=== PATIENT | male | born 1955 | race Caucasian/White ===

== ENCOUNTER 2022-09-18 14:06 | Inpatient (IN) | payer OTHER ==
[~2022-09-18] VITALS: Ht 170.2 cm; Wt 113.4 kg
--- NOTE | 2022-09-18 14:17 | NUR ---
Patient is alert, awake, oriented to name, but unable to recall the exact names & dosages of his home medicines at this time.
[2022-09-18] MEDS ORDERED: IV LACTATED RINGERS SOLUTION 1,000 ML BAG IV ONE (14:30)
--- NOTE | 2022-09-18 15:12 | NUR ---
"Plan to admit" per Dr Mcgraw. ER reistration/admitting staff Marisol Leblanc notified.
[2022-09-18 15:44] LABS: HEMATOCRIT 44.8 % (36.7-47.1); MEAN CORPUSCULAR HEMOGLOBIN 28.3 uug (23.8-33.4); MEAN CORPUSCULAR VOLUME 90.6 fL (73.0-96.2); PLATELET COUNT (AUTO) 284 K/uL (152-348)
[2022-09-18 16:29] LABS: ALANINE AMINOTRANSFERASE 20 U/L (16-63); ALKALINE PHOSPHATASE 79 U/L (50-136); ASPARTATE AMINOTRANSFERASE 9 U/L (15-37); BILIRUBIN,DIRECT 0.3 mg/dL (0.0-0.2); BILIRUBIN,TOTAL 0.6 mg/dL (0.2-1.0); CARBON DIOXIDE 12 mmol/L (21-32); CHLORIDE 84 mmol/L (98-107); CREATININE 2.4 mg/dL (0.6-1.3); POTASSIUM 5.4 mmol/L (3.5-5.1); TOTAL PROTEIN, SERUM 7.2 g/dL (6.4-8.2)
[2022-09-18] MEDS ORDERED: CEFEPIME HCL 1 G in IV DEXTROSE 5% 50 ML IV ONE (16:30)
[2022-09-18] MEDS ORDERED: VANCOMYCIN IV 1,000 MG in IV DEXTROSE 5% 250 ML IV ONE (16:30)
[2022-09-18 16:32] LABS: GLUCOSE 742 mg/dL (74-106); UREA NITROGEN, BLOOD 89 mg/dL (7-18)
--- NOTE | 2022-09-18 16:33 | NUR ---
critical results read back to
[2022-09-18] MEDS ORDERED: INSULIN REGULAR, HUMAN 100 UNIT in IV NORMAL SALINE 100 ML IV PRN ×2 (16:45)
--- NOTE | 2022-09-18 16:50 | NUR ---
called conchita schwartz
[2022-09-18] MEDS ORDERED: DILTIAZEM HCL 25 MG IV ONE ×2 (16:59→17:36)
[2022-09-18] MEDS ORDERED: DILTIAZEM HCL 25 MG IV IV ONE ×2 (17:00→18:00)
--- NOTE | 2022-09-18 17:14 | NUR ---
called [facility] will call back
--- NOTE | 2022-09-18 17:16 | NUR ---
PICC line RN will come around [phone], informed MD
[2022-09-18] MEDS ORDERED: CEFEPIME HCL 1 G VIAL ONE (17:27)
[2022-09-18] MEDS: IV NS 1000 ML 1,000 ML IV PRN ×4 (18:09→20:45)
[2022-09-18] MEDS ORDERED: FAMOTIDINE. 20 MG/2 ML VIAL IV ONE ×2 (18:15→18:26)
--- NOTE | 2022-09-18 18:20 | NUR ---
Patient is to receive Cardizem drip and insulin drip however patient only has one line due to poor peripheral access. MD aware. Patient is to receive a midline per MD order, however, I was notified by nursing blood donor recruiter supervisor that the midline nurse would come at 7-8pm. MD Dr Mcgraw stated to start cardizem drip and to administer the insulin drip once second IV access is established.
[2022-09-18] MEDS ORDERED: VANCOMYCIN IV 200 ML ONE (18:27)
[2022-09-18] MEDS ORDERED: DILTIAZEM HCL IV 125 MG in IV DEXTROSE 5% 100 ML IV ONE (18:30)
[2022-09-18] MEDS ORDERED: BLOOD SUGAR DIAGNOSTIC 1 EACH STRIP VI PRN (18:30)
--- NOTE | 2022-09-18 18:40 | NUR ---
Called pharmacy for status of cardizem. Pharmacist stated that medication is not ready and they are going to prepare it.
[2022-09-18 19:00] VITALS: BP 108/88
[2022-09-18 20:00] VITALS: BP 105/91
[2022-09-18] MEDS: INSULIN REGULAR, HUMAN 100 UNIT in IV NORMAL SALINE 99 ML IV PRN ×2 (20:00)
[2022-09-18 21:00] VITALS: BP 92/54
[2022-09-18] MEDS ORDERED: MAG HYDROX/AL HYDROX/SIMETH 30 ML LIQUID UDC PO ONE (21:00)
--- NOTE | 2022-09-18 21:00 | NUR ---
ACCUCHECK READS HIGH
[2022-09-18] MEDS ORDERED: ONDANSETRON 4 MG/2 ML VIAL IV PRN (21:30)
[2022-09-18] MEDS ORDERED: MORPHINE SULFATE 2 MG/1 ML DISP.SYRIN IV PRN (21:30)
[2022-09-18] MEDS ORDERED: ACETAMINOPHEN 325 MG TABLET PO PRN (21:30)
[2022-09-18] MEDS ORDERED: INSULIN REGULAR, HUMAN 100 UNIT in IV NORMAL SALINE 99 ML IV PRN ×2 (21:30)
[2022-09-18 22:00] VITALS: BP 115/74
[2022-09-18] MEDS ORDERED: AMIODARONE HCL IV 150 MG in IV DEXTROSE 5% 100 ML IV ONE (22:15)
[2022-09-18] MEDS ORDERED: AMIODARONE HCL IV 900 MG in IV DEXTROSE 5% 482 ML IV PRN (22:15)
[2022-09-18 22:36] LABS: CREATININE 1.9 mg/dL (0.6-1.3); MAGNESIUM 2.7 mg/dL (1.8-2.4); PHOSPHOROUS 3.7 mg/dL (2.5-4.9); POTASSIUM 4.5 mmol/L (3.5-5.1)
[2022-09-18] MEDS ORDERED: AMIODARONE HCL 150 MG/3 ML VIAL IV ONE ×2 (22:38→22:39)
[2022-09-18] MEDS ORDERED: HEPARIN/D5W DRIP 500 ML ONE (22:56)
[2022-09-18 23:00] VITALS: BP 132/89
[2022-09-18] MEDS ORDERED: HEPARIN SODIUM,PORCINE 5,000 UNITS/ML VIAL IV ONE (23:00)
[2022-09-18] MEDS: HEPARIN/D5W DRIP 500 ML IV PRN (23:00)
[2022-09-18] MEDS ORDERED: HEPARIN SODIUM,PORCINE 5,000 UNITS/ML VIAL ONE (23:11)
[2022-09-18] MEDS ORDERED: INSULIN GLARGINE,HUM 300 UNITS/3 ML CARTRIDGE SQ ONE (23:19)
[2022-09-18] MEDS ORDERED: PIPERACILLIN/TAZO 2.25 GM VIAL ONE (23:49)
[2022-09-18] MEDS ORDERED: PIPERACILLIN/TAZOBACTAM/D5W 50 ML ONE (23:49)
[2022-09-18] MEDS: PIPERACILLIN/TAZO 2.25 G in IV DEXTROSE 5% 50 ML IV SCH (23:50)
[2022-09-19] VITALS (24 sets, daily range): BP systolic 93–150; BP diastolic 51–90
--- NOTE | 2022-09-19 00:35 | NUR ---
Discussed with pharmacy concerning continuing Insulin gtt.
[2022-09-19] MEDS: IV NS 1000 ML 1,000 ML IV PRN ×4 (01:40→14:55)
[2022-09-19] MEDS ORDERED: DILTIAZEM HCL IV 125 MG in IV NORMAL SALINE 100 ML IV PRN (03:40)
--- NOTE | 2022-09-19 03:40 | NUR ---
ER-MD: Dr Solano telephone with Triston Dunn NP. Noted new orders.
[2022-09-19] MEDS ORDERED: VASOPRESSIN IV PRN ×2 (04:00→06:15)
[2022-09-19] MEDS ORDERED: NORMAL SALINE IV PRN ×2 (04:00→06:15)
[2022-09-19 04:16] LABS: ABG BASE EXCESS -5.5 mmol/L; ABG HCO3 18.6 mmol/L; ABG PCO2 32.1 mmHg (35.0-45.0); ABG PO2 81.1 mmHg (75.0-100.0); ABG SITE LEFT RADIAL; ABG TOTAL HEMOGLOBIN 13.1 G/dL (13.5-18.0); COHb 0.3 % (0.5-1.5); MetHb 0.3 % (0.0-1.5); O2Hb 95.7 % (94.0-97.0); VENT MODE room air
[2022-09-19 04:37] LABS: CREATININE 1.6 mg/dL (0.6-1.3); POTASSIUM 3.6 mmol/L (3.5-5.1)
[2022-09-19] MEDS ORDERED: PIPERACILLIN/TAZOBACTAM/D5W 50 ML ONE (04:48)
[2022-09-19 04:51] LABS: BILIRUBIN,TOTAL 0.4 mg/dL (0.2-1.0); CREATININE 1.6 mg/dL (0.6-1.3); MAGNESIUM 2.5 mg/dL (1.8-2.4); PHOSPHOROUS 2.5 mg/dL (2.5-4.9); POTASSIUM 3.7 mmol/L (3.5-5.1); TOTAL PROTEIN, SERUM 5.9 g/dL (6.4-8.2)
[2022-09-19 04:53] LABS: THYROID STIMULATING HORMONE 0.72 mIU/mL (0.358-3.740)
[2022-09-19 04:54] LABS: MEAN CORPUSCULAR HEMOGLOBIN 28.6 uug (23.8-33.4); MEAN CORPUSCULAR VOLUME 84.4 fL (73.0-96.2); PLATELET COUNT (AUTO) 236 K/uL (152-348)
[2022-09-19] MEDS: PIPERACILLIN/TAZO 2.25 G in IV DEXTROSE 5% 50 ML IV SCH (05:12)
[2022-09-19] MEDS ORDERED: AMIODARONE HCL IV 450 MG in IV DEXTROSE 5% 250 ML IV PRN (06:00)
--- NOTE | 2022-09-19 06:00 | NUR ---
Cardizem gtt. titrated as specifically directed by Dr Solano.
[2022-09-19] MEDS ORDERED: AMIODARONE HCL 150 MG/3 ML VIAL IV ONE (06:47)
[2022-09-19 08:19] LABS: *BILIRUBIN,URIN NEGATIVE (NEGATIVE); *CLARITY,URINE CLEAR (CLEAR); *COLOR,URINE YELLOW (YELLOW); *KETONES,URINE 2+ (NEGATIVE); *UROBILINOGEN,URINE 0.2 E.U./dl (NORMAL); LEUKOCYTE ESTERASE ,URINE NEGATIVE (NEGATIVE); NITRITE, URINE NEGATIVE (NEGATIVE)
[2022-09-19 08:24] LABS: *BLOOD, URINE TRACE (NEGATIVE); UGLUCOSE 2+ (NEGATIVE)
[2022-09-19] MEDS ORDERED: BLOOD SUGAR DIAGNOSTIC 1 EACH STRIP VI PRN (08:30)
[2022-09-19 08:34] LABS: RBC,URINE 0-3 /HPF (0-3); WBC,URINE NONE SEEN /HPF (0-3)
[2022-09-19 08:35] LABS: BACTERIA,URINE FEW /HPF (NONE SEEN); SQUAMOUS EPITHELIAL CELL,UR FEW /HPF (NONE SEEN); URIC ACID CRYSTALS,URINE FEW /HPF (NONE SEEN)
[2022-09-19 08:36] LABS: URINE AMORPHOUS URATE MODERATE /HPF
[2022-09-19] MEDS: BLOOD SUGAR DIAGNOSTIC 1 EACH STRIP VI SCH ×11 (09:00→23:41)
[2022-09-19] MEDS: HEPARIN/D5W DRIP 500 ML IV PRN ×2 (09:17→13:13)
[2022-09-19] MEDS: INSULIN REGULAR, HUMAN 100 UNIT in IV NORMAL SALINE 99 ML IV PRN ×10 (10:14→16:12)
[2022-09-19] MEDS ORDERED: PANTOPRAZOLE SODIUM 40 MG VIAL ONE (10:18)
[2022-09-19] MEDS: PANTOPRAZOLE SODIUM 40 MG VIAL IV SCH (10:20)
[2022-09-19] MEDS: PIPERACILLIN SODIUM/TAZOBACTAM 3.375 G in IV DEXTROSE 5% 50 ML IV SCH ×3 (11:18→23:33)
[2022-09-19] MEDS ORDERED: PIPERACILLIN/TAZO 2.25 G in IV DEXTROSE 5% 50 ML IV SCH (12:00)
[2022-09-19 12:17] LABS: CREATININE 1.4 mg/dL (0.6-1.3); POTASSIUM 3.4 mmol/L (3.5-5.1)
--- NOTE | 2022-09-19 12:30 | NUR ---
Spoke with Patients ex and informed her that we need to get a list of the patients home medications. Also informed her that despite her claim that paramedics said that they would give us a list; they didn't forward a list of hs home medications to ED and patient is unabl to remember his home medicatiions
[2022-09-19] MEDS ORDERED: DILTIAZEM HCL CD 240 MG CAP.SR.24H PO SCH (14:45)
--- NOTE | 2022-09-19 15:15 | NUR ---
Pharmacist spoke with the ex as well to follow up with the list of home medications. The ex said that she would return later tonight with the list of home medications because she hasn't had the time to get the list of home medications that I requested from the ex and sister (Cathy)
[2022-09-19] MEDS: APIXABAN 5 MG TABLET PO SCH (15:31)
[2022-09-19] MEDS ORDERED: VANCOMYCIN IV 1,500 MG in IV DEXTROSE 5% 500 ML IV SCH (16:00)
[2022-09-19 16:19] LABS: CREATININE 1.2 mg/dL (0.6-1.3); POTASSIUM 3.4 mmol/L (3.5-5.1)
[2022-09-19] MEDS ORDERED: INSULIN GLARGINE,HUM 300 UNITS/3 ML CARTRIDGE SQ SCH ×2 (18:00→21:00)
[2022-09-19] MEDS ORDERED: DEXTROSE 50% 50 ML DISP.SYRIN IV PRN ×2 (18:15→21:00)
[2022-09-19] MEDS ORDERED: POTASSIUM CHLORIDE 20 MEQ TAB.PRT.SR PO ONE (18:30)
[2022-09-19] MEDS ORDERED: IV NS 1000 ML 1,000 ML IV PRN (18:45)
[2022-09-19] MEDS ORDERED: POTASSIUM CHLORIDE 20 MEQ TAB.PRT.SR ONE (18:51)
[2022-09-19] MEDS: INSULIN REGULAR, HUMAN 300 UNIT/3 ML VIAL SQ PRN ×2 (20:09→23:44)
--- NOTE | 2022-09-19 20:30 | NUR ---
Sister visiting. Patient C/O difficulty swallowing.
[2022-09-19] MEDS ORDERED: INSULIN REGULAR, HUMAN 300 UNIT/3 ML VIAL SQ PRN (21:00)
[2022-09-19] MEDS ORDERED: BLOOD SUGAR DIAGNOSTIC 1 EACH STRIP VI SCH (21:00)
[2022-09-19] MEDS ORDERED: INSULIN REGULAR, HUMAN 300 UNITS/3 ML VIAL SQ PRN (21:00)
[2022-09-20] VITALS (9 sets, daily range): BP systolic 102–132; BP diastolic 35–83
[2022-09-20 01:59] LABS: *AMPHETAMINE, URINE NEGATIVE (NEGATIVE); *CANNABINOID, URINE NEGATIVE (NEGATIVE); *COCCAINE, URINE NEGATIVE (NEGATIVE); *PHENCYCLIDINE SCREEN,URINE NEGATIVE (NEGATIVE)
[2022-09-20] MEDS ORDERED: OLANZAPINE 10 MG VIAL IM ONE (03:45)
--- NOTE | 2022-09-20 03:45 | NUR ---
Patient wanting to go home. Attempting to remove medical devices. Uncooperative in cares. Thinking staff is against him. Notified KRISTAL Riddle. Noted new orders.
[2022-09-20] MEDS: INSULIN REGULAR, HUMAN 300 UNIT/3 ML VIAL SQ PRN ×4 (04:18→16:44)
[2022-09-20] MEDS: BLOOD SUGAR DIAGNOSTIC 1 EACH STRIP VI SCH ×4 (04:20→16:28)
[2022-09-20 04:39] LABS: HEMATOCRIT 35.1 % (36.7-47.1); MEAN CORPUSCULAR HEMOGLOBIN 28.5 uug (23.8-33.4); MEAN CORPUSCULAR VOLUME 84.9 fL (73.0-96.2); PLATELET COUNT (AUTO) 213 K/uL (152-348)
[2022-09-20 05:05] LABS: CREATININE 1.2 mg/dL (0.6-1.3)
[2022-09-20 05:08] LABS: MAGNESIUM 2.5 mg/dL (1.8-2.4); PHOSPHOROUS 1.6 mg/dL (2.5-4.9)
[2022-09-20] MEDS: PIPERACILLIN SODIUM/TAZOBACTAM 3.375 G in IV DEXTROSE 5% 50 ML IV SCH ×3 (05:32→18:22)
[2022-09-20] MEDS ORDERED: PANTOPRAZOLE SODIUM 40 MG VIAL ONE (08:12)
[2022-09-20] MEDS: APIXABAN 5 MG TABLET PO SCH (08:44)
[2022-09-20] MEDS: PANTOPRAZOLE SODIUM 40 MG VIAL IV SCH (08:47)
[2022-09-20] MEDS ORDERED: DILTIAZEM HCL CD 120 MG CAP.SR.24H PO ONE (08:50)
[2022-09-20] MEDS ORDERED: DILTIAZEM HCL CD 120 MG CAP.SR.24H PO SCH (09:00)
--- NOTE | 2022-09-20 09:00 | NUR ---
Dr. Wise at bedside for assessment. Plan to wean patient off cardizem drip. stated that he may add beta gris to treatment plan. also stated that under 110 heart rate is acceptable.
[2022-09-20] MEDS ORDERED: METOPROLOL TARTRATE 50 MG TABLET PO SCH (09:15)
[2022-09-20] MEDS ORDERED: METOPROLOL TARTRATE 50 MG TABLET ONE (09:21)
--- NOTE | 2022-09-20 10:10 | NUR ---
Notified Dr. Rutherford about patient's restlessness and agitation. Patient yelling and cursing at nursing staff. New order received.
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
[2022-09-20] MEDS ORDERED: HALOPERIDOL LACTATE 5 MG/1 ML VIAL IM PRN (10:30)
[2022-09-20] MEDS ORDERED: HALOPERIDOL LACTATE 5 MG/1 ML VIAL ONE (10:58)
--- NOTE | 2022-09-20 11:43 | NUR ---
Spoke with Kirstin from [facility]. She is requesting covid result and another troponin draw. Notified Dr. Rutherford.
[2022-09-20] MEDS ORDERED: PIPERACILLIN/TAZOBACTAM/D5W 50 ML IV ONE (11:44)
[2022-09-20] MEDS ORDERED: MORPHINE SULFATE 2 MG/1 ML DISP.SYRIN ONE (12:22)
--- NOTE | 2022-09-20 12:24 | NUR ---
Patient states that he has generalized pain all over his body, is requesting something for pain.
--- NOTE | 2022-09-20 12:53 | NUR ---
Notified by Dr. Rutherford that patient needs to be transferred urgently to [place] for arterial occlusion in leg.
--- NOTE | 2022-09-20 13:00 | NUR ---
Spoke with Kirstin from [facility]. Notified her about the arterial occlusion in patient's leg and per Dr. Rutherford, patient urgently needs vascular surgery. Faxed over the ultrasound report. Awaiting call back in regards to the plan for patient.
--- NOTE | 2022-09-20 13:11 | NUR ---
Critical lab: troponin 804.5 reported to
--- NOTE | 2022-09-20 13:15 | NUR ---
Notified Kirstin from [facility] about patient's troponin level. She will call back to discuss the plan for patient.
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
--- NOTE | 2022-09-20 13:45 | NUR ---
Spoke with [facility] who followed up regarding the patient. She stated she will call back if the doctor needs any further information.
[2022-09-20] MEDS ORDERED: VANCOMYCIN IV 1,000 MG in IV DEXTROSE 5% 250 ML IV SCH (14:00)
--- NOTE | 2022-09-20 14:00 | NUR ---
Order received by Dr. Rutherford, for patient to get an x-ray of the right foot.
--- NOTE | 2022-09-20 15:53 | NUR ---
Dr. Abernathy poultry processor at bedside for evaluation.
[2022-09-20] MEDS ORDERED: NEUTRA PHOS PACKET PO ONE (16:00)
--- NOTE | 2022-09-20 16:00 | NUR ---
Accepting MD at [facility] is Dr. Steward. Per Kirstin, [facility], they are waiting for an available bed for this patient.
--- NOTE | 2022-09-20 17:23 | NUR ---
Per [facility] patient is going to [facility] Room [address] Steward accepting Ambulance is [facility] ETA 1 hour
--- NOTE | 2022-09-20 17:45 | NUR ---
Gave report to CAITLIN Felipe at [facility].
--- NOTE | 2022-09-20 18:49 | NUR ---
Patient picked up by [facility] transport team. Gave report to Don TUCKER with [facility] ambulance.
== END 2022-09-20 19:00 | disposition short-term general hospital (02) | DRG 871 ==
LOC: ER 14:09 → TRANSITION 22:10
PROVIDERS: ADMIT Internal Medicine; ATTEND Internal Medicine
PROC: 05H333Z Insertion of Infusion Device into Right Innominate Vein, Percutaneous Approach (ICD-10-PCS; principal; 2022-09-19)
DX: A41.9 Sepsis, unspecified organism (principal); E10.10 Type 1 diabetes mellitus with ketoacidosis without coma; N17.0 Acute kidney failure with tubular necrosis; I21.A1 Myocardial infarction type 2; G92.8 Other toxic encephalopathy; I50.23 Acute on chronic systolic (congestive) heart failure; L03.115 Cellulitis of right lower limb; L02.611 Cutaneous abscess of right foot; I48.92 Unspecified atrial flutter; D68.59 Other primary thrombophilia; E87.1 Hypo-osmolality and hyponatremia; M86.8X7 Other osteomyelitis, ankle and foot; Z79.4 Long term (current) use of insulin; E10.610 Type 1 diabetes mellitus with diabetic neuropathic arthropathy; E10.621 Type 1 diabetes mellitus with foot ulcer; L97.519 Non-pressure chronic ulcer of other part of right foot with unspecified severity; M21.41 Flat foot [pes planus] (acquired), right foot; E10.42 Type 1 diabetes mellitus with diabetic polyneuropathy; E10.51 Type 1 diabetes mellitus with diabetic peripheral angiopathy without gangrene; I70.202 Unspecified atherosclerosis of native arteries of extremities, left leg; I70.235 Atherosclerosis of native arteries of right leg with ulceration of other part of foot; I77.1 Stricture of artery; Z20.822 Contact with and (suspected) exposure to COVID-19; M50.31 Other cervical disc degeneration, high cervical region; M48.02 Spinal stenosis, cervical region; I48.91 Unspecified atrial fibrillation; I25.10 Atherosclerotic heart disease of native coronary artery without angina pectoris; Z95.1 Presence of aortocoronary bypass graft; Z91.81 History of falling; E87.5 Hyperkalemia; Z74.09 Other reduced mobility; E66.9 Obesity, unspecified; Z68.39 Body mass index [BMI] 39.0-39.9, adult; F19.10 Other psychoactive substance abuse, uncomplicated; E10.69 Type 1 diabetes mellitus with other specified complication
CPT/HCPCS: 36415; 36600; 70450; 71045; 72125; 73630; 83605; 83735; 84100; 84443; 84484; 85025; 85730; 87040; 93005; 93307; A4663; C9113; G0378; J0282; J0692; J1630; J1644; J1815; J2270; J2358; J2543; J3370; J3490; J7040; J7050; J7060; J7120